=== PATIENT | male | born 1985 | race Caucasian/White ===

== ENCOUNTER 2016-08-11 11:34 | Emergency (ER) | payer MEDICAID ==
[2016-08-11 13:27] LABS: BASOPHIL % 0.1 % (0-2); PLATELET COUNT 194 x10^3mcL (130-400)
[2016-08-11 13:44] LABS: CALCIUM 9.2 mg/dL (8.5-10.1); CARBON DIOXIDE 29.9 mmol/L (21-32); CHLORIDE SERUM 102 mmol/L (98-107); CREATININE SERUM 0.7 mg/dL (0.7-1.3); GFR1 > 60 mL/min; GLUCOSE SERUM 100 mg/dL (74-106); POTASSIUM SERUM 4.8 mmol/L (3.5-5.1); SODIUM SERUM 139 mmol/L (136-145)
[2016-08-11 13:52] LABS: ALBUMIN 4.4 g/dL (3.4-5.0); ALKALINE PHOSPHATASE 88 U/L (46-116); ALT/SGPT 55 U/L (16-63); AST/SGOT 28 U/L (15-37); BILIRUBIN TOTAL 0.53 mg/dL (0.20-1.00); HDL CHOLESTEROL 47 mg/dL (40-60); MAGNESIUM 2.1 mg/dL (1.8-2.4); TOTAL PROTEIN, SERUM 7.9 g/dL (6.4-8.2)
[2016-08-11 13:54] LABS: CHOLESTEROL 235 mg/dL (<200)
[2016-08-11 14:05] LABS: microscopic required? NO
[2016-08-11 14:14] LABS: UA SPECIFIC GRAVITY 1.025 (1.005-1.035); urine erythrocyte NEGATIVE (NEGATIVE)
[2016-08-11 16:08] VITALS: BP 132/71
== END 2016-08-11 16:08 | disposition home or self-care (01) ==
LOC: ED 11:34
PROVIDERS: Emergency Medicine
DX: R42 Dizziness and giddiness (principal); R11.10 Vomiting, unspecified; E78.00 Pure hypercholesterolemia, unspecified
CPT/HCPCS: 83880; J2550; J7030; J8597; Q0092